=== PATIENT | male | born 2000 | race Caucasian/White ===

== ENCOUNTER 2024-03-26 14:09 | Emergency (ER) | payer BC ==
[2024-03-26] MEDS: Ketorolac 30 MG/ML SDV IVPUSH ONE (17:12)
[2024-03-26] MEDS: Sodium Chloride 0.9% 1,000 ML IV ONE (17:13)
[2024-03-26] MEDS ORDERED: Naloxone 0.4 MG/ML SDV IVPUSH PRN (19:52)
[2024-03-26] MEDS: HYDROmorphone 0.5 MG/0.5 ML Syringe IVPUSH ONE (20:45)
== END 2024-03-26 20:55 | disposition home or self-care (01) ==
LOC: MW.ED 14:09
DX: J03.90 Acute tonsillitis, unspecified (principal); Z79.899 Other long term (current) drug therapy
CPT/HCPCS: 87651; 96361; 96374; 96375; 99284; J1100; J1885; J7030; 99283

== ENCOUNTER 2024-10-04 01:08 | Emergency (ER) | payer SELFPAY ==
[2024-10-04 01:57] LABS: APPEARANCE,URINE CLEAR; GLUCOSE,URINE NEGATIVE (NEGATIVE); OCCULT BLOOD,URINE TRACE-INTACT (NEGATIVE)
[2024-10-04 01:59] LABS: AMPHETAMINES SCREEN, URINE NEGATIVE (CUTOFF=500); BUPRENORPHINE SCREEN,URINE NEGATIVE (CUTOFF=10); METHADONE SCREEN, URINE NEGATIVE (CUTOFF=200); METHAMPHETAMINES SCREEN, URINE NEGATIVE (CUTOFF=500); OXYCODONE SCREEN,URINE NEGATIVE (CUT0FF=100); PCP SCREEN,URINE NEGATIVE (CUTOFF=25); THC SCREEN,URINE 20 NG/ML NEGATIVE (CUTOFF=50)
[2024-10-04 02:15] LABS: EPITHELIAL CELLS,URINE RARE (NONE-FEW)
== END 2024-10-04 02:17 | disposition left against medical advice (07) ==
LOC: MW.ED 01:08
DX: R56.9 Unspecified convulsions (principal); F17.210 Nicotine dependence, cigarettes, uncomplicated; Z75.3 Unavailability and inaccessibility of health-care facilities; Z53.20 Procedure and treatment not carried out because of patient's decision for unspecified reasons
CPT/HCPCS: 80305; 81001; 99283; 99284